=== PATIENT | male | born 1940 | race Caucasian/White ===

== ENCOUNTER 2022-06-24 10:14 | Outpatient (CLI) | payer MEDICARE, BC, SELFPAY ==
[2022-06-24 10:23] VITALS: BP 130/83; PULSE 71; RESP 16; O2SAT 98
[2022-06-24] MEDS: TETRACAINE 0.5% OPHTH 1 DROP EYE-BOTH ×3 (10:31→11:24)
[2022-06-24] MEDS: BRIMONIDINE TARTRATE 0.2% OPHTH 1 DROP EYE-BOTH ×2 (10:31→11:34)
--- NOTE | 2022-06-24 11:55 | W.PM.OPTPROC ---
Procedure Note Date of procedure: 06/24/22 Will [facility] bill your pro fee for this procedure?: Yes Procedure Description: SURGEON: Gaby Aponte MD PREOPERATIVE DIAGNOSIS: Posterior capsular opacity, right and left eye POSTOPERATIVE DIAGNOSIS: Posterior capsular opacity, right and left eye PROCEDURE: YAG laser capsulotomy, both eyes ANESTHESIA: Topical. ESTIMATED BLOOD LOSS: None PATHOLOGY SPECIMEN: None COMPLICATIONS: None INDICATIONS: See consult note for details. The risks, benefits and alternatives of the procedure were explained to the patient, who elected to proceed and signed informed consent to do so. PROCEDURE: The patient was brought to the pre-holding area where the right and left eyes were identified as the operative eyes. I placed my initials above the eyes. The following was given in both eyes: The patient received 2 sets of 1 drop of 0.5% tetracaine and 1 drop of 1% tropicamide. They also received 1 drop of 0.2% brimonidine. They received 1 drop of 0.5% tetracaine immediately prior to bringing them back for the procedure. The patient was then brought to the procedure room where the right and left eyes were again identified as the operative eyes. A YAG Augustine capsulotomy lens was placed on the right eye. The laser was administered using a total number of 47 shots with an energy of 2.4 mJ per shot for a total energy of 113 mJ. Please note that it required this amount of energy to make a small central opening. The patient tolerated the procedure well. A YAG Augustine capsulotomy lens was placed on the left eye. The laser was administered using a total number of 14 shots with an energy of 2.4 mJ per shot for a total energy of 34 mJ. The patient tolerated the procedure well. DISPOSITION: The patient was taken back to the pre-holding area and given 1 drop of 0.2% brimonidine in both eyes. They were discharged to home in stable condition. The patient was instructed to call me or go to the emergency department with any sudden change, including dramatic loss of vision, severe pain in the eye or eyebrow region, nausea, or vomiting. The patient was instructed to use the 0.2% brimonidine 1 drop 2 times a day in both eyes for 1 week. The patient will follow up in the clinic in 1-2 weeks. Surgeon: Gaby Aponte MD
== END 2022-06-24 11:34 | disposition home or self-care (01) ==
PROVIDERS: PCP Family Medicine; Visit Provider Ophthalmology
DX: H26.9 Unspecified cataract (principal)
CPT/HCPCS: 66821; A9270

== ENCOUNTER 2022-11-05 09:46 | Emergency (ER) | payer MEDICARE, BC, SELFPAY ==
[2022-11-05 09:58] VITALS: BP 168/78; PULSE 84; RESP 18; TEMP 35.6; O2SAT 97; BMI 29.9
--- NOTE | 2022-11-05 10:21 | ED_ITS ---
HPI - Headache General Time Seen by Provider: 10:21 Date Seen: 11/05/22 Chief Complaint: Headache/Migraine Stated Complaint: 10/26 double vision issues, ear/headache Lside Time Seen by Provider: 11/05/22 10:21 Source: patient and RN notes reviewed Mode of arrival: ambulatory Limitations: no limitations History of Present Illness HPI Narrative: Patient is an 82-year-old male coming in with concern of left-sided headache and neck pain. Starting October 26 for about a week he had double vision, could not read the newspaper. It did not matter if he opened 1 eye or the other, could not read the newspaper. This did go away. After that he had pain going through his left neck up into his left head. He feels pain over the left scalp area. No fevers or chills. No otalgia. No further visual changes, these have resolved. No ear symptoms, no numbness tingling weakness anywhere. He does not have any pain with with chewing or difficulty chewing. He has maybe felt a little lightheaded at times, no spinning sensation with this. No extremity issues such as numbness tingling weakness or incoordination. He has not felt any chest pain, no palpitations, no irregular heartbeat. He is notably able to read again notes no double vision, no blurry vision. The concern is the head and neck pain at this time. He is not on any blood thinners. His current med rec is reviewed. He has tried some Tylenol and ibuprofen, does dull the pain. He states sleep is not unchanged and is a poor baseline. MD elicited complaint: headache Onset (ago): day(s) Related Data Home Medications Medication Instructions Recorded Confirmed amlodipine 5 mg tablet 5 mg PO DAILY 11/05/22 11/05/22 atorvastatin 40 mg tablet 40 mg PO DAILY 11/05/22 11/05/22 clindamycin phosphate 1 % lotion topical 11/05/22 folic acid 400 mcg tablet 400 mcg PO DAILY 11/05/22 11/05/22 ketoconazole 2 % shampoo topical DAILY 11/05/22 losartan 100 mg tablet 100 mg PO DAILY 11/05/22 11/05/22 methotrexate sodium 2.5 mg tablet 20 mg PO 11/05/22 tamsulosin 0.4 mg capsule mg PO 11/05/22 Allergies Allergy/AdvReac Type Severity Reaction Status Date / Time cephalexin [From Keflex] Allergy Verified 11/05/22 09:56 Review of Systems Status of ROS: Reports: 10 or more systems reviewed and unremarkable except as noted in History and below [facility] Social History Smoking Status: Never smoker Do you use any of these nicotine containing products: None Second hand tobacco smoke exposure: No How often do you have a drink containing alcohol: never AUDIT-C Alcohol total score: 0 Non-prescribed substance use: denies use Exam Const: Vital Signs, click to edit/add: Vital Signs - 24 hr 11/05/22 09:58 11/05/22 10:58 11/05/22 11:38 Temperature 96.1 F L Pulse Rate [Right Pulse Oximeter] 84 65 Respiratory Rate 18 Blood Pressure [Ri ght Upper Arm] 168/78 H 146/71 H Pulse Oximetry 97 98 98 Oxygen Delivery Me thod Room Air Room Air Documenting provider has reviewed patient's vital signs: yes Common normals: no apparent distress, oriented x3, no limitations, healthy appearing, alert and well nourished General appearance: cooperative, comfortable and well [facility] Nutritional appearance: overweight HENMT: Common normals: normocephalic, head/scalp atraumatic, hearing grossly normal bilaterally, external ears normal, TM's normal bilaterally, external nose normal, nasal mucous membranes and turbinates normal, moist oral mucous membranes, oropharynx normal and dentition normal Head and scalp: normocephalic and atraumatic Nose: external nose normal and nasal mucous membranes and turbinates normal External ear: external ears normal Tympanic membrane: TM's normal bilaterally Mouth: oral and palatal mucosa normal, lip normal and tongue normal Eye: Common normals: PERRL, EOMs intact bilaterally, conjunctivae normal, no scleral icterus and normal visual durbin by confrontation General eye: normal appearance of both eyes Alignment: alignment normal Periorbital: periorbital findings normal Eyelid: eyelids normal Conjunctiva: c onjunctiva(e) normal Cornea: corneas normal Pupil: PERRL Neck & C-Spine: Common normals: full ROM, no lymphadenopathy, supple, no meningeal signs, no JVD and thyroid normal Thyroid: thyroid normal Resp: Common normals: normal respiratory effort, no retractions, no use of accessory muscles and clear to auscultation bilaterally Auscultation: clear to auscultation bilaterally Cardio: Common normals: no JVD, regular rate, regular rhythm, S1 normal heart sound, S2 normal heart sound, no gallops, no clicks and no murmurs Rate: regular rate Rhythm: regular rhythm Heart sounds: S1 normal and S2 normal Extremity: Common normals: normal to inspection Neuro: Common normals: oriented x3, CN's II-XII intact bilaterally, moves all extremities, no focal motor deficits, no sensory deficits noted and gait normal Sensorium/orientation: alert Meningeal signs: no meningeal signs Psych: Appearance: well kempt Course Course Hospital Course: It is reassuring that this double vision has resolved and I find no focal neurologic deficits at this time but history for double vision is concerning on the last. We will proceed with CT of his head noncontrast and then a CTA of his head neck. There could be such things as dissection with ongoing head neck pain. Other etiologies could be an atypical presentation of temporal arteritis. We will be getting inflammatory markers with a sed rate and C-reactive protein. Hopefully with the workup including the neuro imaging and the comprehensive labs, we will rule out any emergent or concerning pathology. Reevaluation(s) Reevaluation #1: Negative noncontrast head CT for acute ischemic stroke changes was called to me at 10:59 a.m. Time: 10:59 Reevaluation #2: Have reviewed CT results with patient. Have reviewed that there is no evidence of active ischemic disease from the CT. His CTA is showing incidental right carotid artery stenosis but at 65%. At this time he is having no double vision, is unclear as to the etiology of his double vision but did review that carotid artery disease does put 1 at risk for strokes. Have recommended an 81 mg aspirin and follow up outpatient through his clinic for further risk stratification and management of this. As far as his left-sided headache, the right carotid stenosis is not responsible for headache on the left side. It could be dural path thick or even musculoskeletal in the sense that arthritis of the cervical spine as a potential etiology for him. We did not work this up further given that his head CT CTA is, inflammatory markers and labs were normal. Am going to discharge him for further workup and management of his headache as well on the left side with his primary care provider. Time: 12:40 Vital Signs Vital signs: Initial Vital Signs Temperature 96.1 F L 11/05/22 09:58 Temperature Source Temporal Artery Scan 11/05/22 09:58 Pulse Rate 84 11/05/22 09:58 Respiratory Rate 18 11/05/22 09:58 Blood Pressure 168/78 H 11/05/22 09:58 Blood Pressure Mean 108 H 11/05/22 09:58 Blood Pressure Position Sitting 11/05/22 09:58 Pulse Oximetry 97 11/05/22 09:58 Oxygen Delivery Method Room Air 11/05/22 09:58 Vital Signs Temperature 96.1 F L 11/05/22 09:58 Pulse Rate 84 11/05/22 09:58 Respiratory Rate 18 11/05/22 09:58 Blood Pressure 168/78 H 11/05/22 09:58 Pulse Oximetry 97 11/05/22 09:58 Oxygen Delivery Method Room Air 11/05/22 09:58 Temperature 96.1 F L 11/05/22 09:58 Pulse Rate 65 11/05/22 11:38 Respiratory Rate 18 11/05/22 09:58 Blood Pressure 146/71 H 11/05/22 11:38 Pulse Oximetry 98 11/05/22 11:38 Oxygen Delivery Method Room Air 11/05/22 11:38 MDM - Headache Differential Diagnosis Differential diagnosis: Likely migraine, tension headache, subarachnoid hemorrhage, headache, meningitis and sinusitis Lab Data Attestation: I reviewed the patient's lab results. Labs: Lab Results 11/05/22 Range/Units 10:35 WBC 6.32 (4.50-11.00) K/uL RBC 4.88 (4.30-5.90) m/uL Hgb 14.2 (13.5-17.5) gm/dL Hct 43.5 (37.0-53.0) % MCV 89 (80-100) fL MCH 29 (26-34) pg MCHC 33 (32-36) gm/dL RDW Coeff of Huang 15.8 H (11.5-15.5) % Plt Count 92 L (140-440) K/uL Neut % (Auto) 62.6 (42.0-72.0) % Lymph % (Auto) 23.3 (20-44) % Dundy % (Auto) 8.9 (0.0-11.0) % Eos % (Auto) 4.4 (0.0-7.0) % Baso % (Auto) 0.6 (0.0-3.0) % Neut # (Auto) 3.96 (1.7-7.0) K/uL Lymph # (Auto) 1.47 (0.90-2.90) K/uL Dundy # (Auto) 0.60 (0.00-0.90) K/UL Eos # (Auto) 0.28 (0.00-0.50) K/uL Baso # (Auto) 0.04 (0.00-0.30) K/uL ESR < 2 L (2-15) mm/hr D-Dimer Quant (PE/DVT) 0.35 (0.00-0.50) ug/ml Sodium 141 (135-149) mmol/L Potassium 4.2 (3.6-5.1) mmol/L Chloride 103 (96-114) mmol/L Carbon Dioxide 31 (20-32) mmol/L BUN 15 (7-30) mg/dL Creatinine 0.7 (0.5-1.5) mg/dL Estimated Creat Clear 49.62 Estimated GFR 91 ml/min Glucose 90 (60-115) mg/dL Calcium 9.2 (8.4-10.6) mg/dL Total Bilirubin 1.0 (0.1-1.5) mg/dL AST 36 H (12-35) U/L ALT 28 (4-50) U/L Alkaline Phosphatase 70 (40-150) U/L C-Reactive Protein 0.6 (0.5-1.0) mg/dL Total Protein 7.5 (6.0-8.3) g/dL Albumin 4.5 (3.3-5.0) g/dL POC Creatinine 1.0 (0.6-1.3) mg/dl Imaging Data CT scan - head: Attestation: I have reviewed the pertinent imaging results. My impression: My acute preliminary review of this head CT is negative, wait radiology over read. Radiologist's impression: Patient: ANDRÉS PATEL Facility:?[facility] Patient ID:?[id number] Site Patient ID:?[id number] Site :?[id number] Study:?CT Head W/O Stroke Protocol-11/05/2022 10:51:14 AM Ordering Physician:Joy Sinha Final Report: INDICATION: Recent diplopia COMPARISON: None TECHNIQUE: CT examination of the head was performed as axial sections without intravenous contrast. Images were obtained from the vertex of the skull through the skull base. Please note that all CT scans at this facility use dose modulation, iterative reconstruction, and/or weight-based dosing when appropriate to reduce radiation dose to as low as reasonably achievable. FINDINGS: The brain shows no sign of mass lesion, mass effect, hemorrhage, or edema. There are involutional changes. There is bule-hf-lgwkdgey cortical atrophy and there is tybg-iz-jxahdbnl white matter disease. There is no hydrocephalus. The visualized portions of the orbits are normal in appearance. The osseous structures are normal in appearance with no sign of abnormality in the skull base or calvarium. IMPRESSION: Involutional changes. No acute-appearing findings. Please note that all CT scans at this facility use dose modulation, iterative reconstruction, and/or weight-based dosing when appropriate to reduce radiation dose to as low as reasonably achievable. Dictated by Georges Mendez MD @ 11/05/2022 11:00:54 AM ----- ADDENDUM ----- This report was confirmed has received by Dr. Carvajal at 10:59 a.m. on November 05, 2022. Dictated by Georges Mendez MD @ Nov 05 2022 11:01AM (Electronic Signature) CT angio head and neck: Attestation: I have reviewed the pertinent imaging results. Radiologist's impression: Patient: ANDRÉS PATEL Facility:?[facility] Patient ID:?[id number] Site Patient ID:?[id number] Site :?[id number] Study:?CT Neck Angio Angio 95ML ISOVUE 370-11/05/2022 12:06:19 PM Ordering Physician:Joy Sinha Final Report: CT ANGIOGRAM NECK DATE: 11/05/2022 CLINICAL HISTORY: Patient with diplopia and headache. TECHNIQUE: Standard helical CT image acquisition of the neck up to the skull base after bolus intravenous contrast enhancement. 2D and 3D MIP images for post-processing were performed and interpreted on an independent workstation and 3D images were permanently archived. COMPARISON: CT same day. FINDINGS: The origins of the great vessels from the aortic arch are patent. The origin of the right vertebral artery is patent. The origin of the left vertebral artery is patent. The common carotid arteries are patent. There is a moderate (65%) stenosis at the origin of the right internal carotid artery by NASCET criteria caused by calcified plaque with a 1.7mm residual lumen. There is no stenosis at the origin of the left internal carotid artery by NASCET criteria. The rest of the cervical segments of the internal carotid arteries are patent up to the skull base. The vertebral arteries are codominant. The cervical segments of the vertebral arteries are patent up to the skull base. The visualized lung apices are unremarkable. The thyroid gland is unremarkable. The soft tissues of the neck are unremarkable. There are degenerative changes in the cervical spine. IMPRESSION: Moderate (65%) stenosis at the origin of the right internal carotid artery by NASCET criteria caused by calcified plaque with a 1.7mm residual lumen. Please note that all CT scans at this facility use dose modulation, iterative reconstruction, and/or weight-based dosing when appropriate to reduce radiation dose to as low as reasonably achievable. Dictated by: Belem Alvarez MD @ 11/05/2022 12:21:33 (Electronic Signature) ECG Data Attestation: I personally reviewed and interpreted this ECG as follows: (Normal sinus rhythm, 77 beats per minute. No ischemia, QT corrected 418 milliseconds.) ECG interpretation date: 11/05/22 ECG interpretation time: :23 Prior ECG tracings: not available for review Critical Care Time Critical Care Time Critical Care Time: No Discharge Plan Discharge Clinical Impression: Neck pain on left side, Hx of diplopia, Carotid artery stenosis without cerebral infarction, Left-sided headache Patient Disposition: Home, Self-Care Condition: Stable Instructions: Carotid Artery Disease (DC), General Headache (ED), Neck Pain (ED) Additional Instructions: For the left-sided headache and neck pain, recommend Tylenol 1000 mg up to 3 times a day as needed for pain control. Also recommend starting an 81 mg aspirin daily given the incidental finding of the right carotid artery stenosis that was found. You need to follow up in clinic as soon as you are able to, hopefully within the next week. I would ask your primary care provider to further evaluate and workup your left-sided headache and neck symptoms, could be such things as neuralgia or even coming from your neck which arthritis is always a possibility. The CT report should be taken to your primary care provider and further risk stratification and management should be undertaken for the right carotid stenosis. This will need to be followed and managed. Carotid artery stenosis is a risk factor for stroke and thus is very important to be followed and managed. Activity Level: Activity as Tolerated Discharge Diet: Heart Healthy (2 gm sodium, low fat) Prescriptions: No Action atorvastatin 40 mg tablet 40 mg PO DAILY ketoconazole 2 % shampoo topical DAILY amlodipine 5 mg tablet 5 mg PO DAILY methotrexate sodium 2.5 mg tablet 20 mg PO tamsulosin 0.4 mg capsule PO losartan 100 mg tablet 100 mg PO DAILY clindamycin phosphate 1 % lotion topical folic acid 400 mcg tablet 400 mcg PO DAILY Follow Up/Referrals: Barrington Martines MD [Primary Care Provider] - Stand Alone Forms: [employer] Board [employer] (ABAM) Info Instructions
--- NOTE | 2022-11-05 10:21 | CRLHL7_ITS ---
For Patients: As a result of the Century Cures Act, medical imaging exams and procedure reports are released immediately into your electronic medical record. You may view this report before your referring provider. If you have questions, please contact your health care provider. INDICATION: Recent diplopia COMPARISON: None TECHNIQUE: CT examination of the head was performed as axial sections without intravenous contrast. Images were obtained from the vertex of the skull through the skull base. Please note that all CT scans at this facility use dose modulation, iterative reconstruction, and/or weight-based dosing when appropriate to reduce radiation dose to as low as reasonably achievable. FINDINGS: The brain shows no sign of mass lesion, mass effect, hemorrhage, or edema. There are involutional changes. There is zgfj-qg-jjkvhmyc cortical atrophy and there is tyyj-br-voxfxphq white matter disease. There is no hydrocephalus. The visualized portions of the orbits are normal in appearance. The osseous structures are normal in appearance with no sign of abnormality in the skull base or calvarium. IMPRESSION: Involutional changes. No acute-appearing findings. Please note that all CT scans at this facility use dose modulation, iterative reconstruction, and/or weight-based dosing when appropriate to reduce radiation dose to as low as reasonably achievable. Dictated by Georges Mendez MD @ 11/05/2022 11:00:54 AM (Electronically Signed)
--- NOTE | 2022-11-05 10:21 | CRLHL7_ITS ---
For Patients: As a result of the Century Cures Act, medical imaging exams and procedure reports are released immediately into your electronic medical record. You may view this report before your referring provider. If you have questions, please contact your health care provider. CT ANGIOGRAM HEAD DATE: 11/05/2022 CLINICAL HISTORY: Patient with headache and diplopia. TECHNIQUE: Standard helical CT image acquisition through the intracranial circulation following intravenous administration of contrast material with bolus tracking. 2D and 3D MIP images for post-processing were performed and interpreted on an independent workstation and 3D images were permanently archived. COMPARISON: CT same day. FINDINGS: There is no proximal intracranial large vessel occlusion. There is no intracranial aneurysm. The right internal carotid artery is normal. The right middle cerebral artery and its branches are normal. The right anterior cerebral artery and its branches are normal. The left internal carotid artery is normal. The left middle cerebral artery and its branches are normal. The left anterior cerebral artery and its branches are normal. The anterior communicating artery is well visualized and appears normal. The right vertebral artery and PICA are normal. The left vertebral artery and PICA are normal. The left vertebral artery is dominant. The basilar artery is patent and appears normal. The right posterior cerebral artery is normal. The left posterior cerebral artery is normal. The visualized venous structures are patent. IMPRESSION: Patent proximal intracranial vasculature. Please note that all CT scans at this facility use dose modulation, iterative reconstruction, and/or weight-based dosing when appropriate to reduce radiation dose to as low as reasonably achievable. Dictated by: Belem Alvarez MD @ 11/05/2022 12:23:14 (Electronically Signed)
[2022-11-05 10:58] VITALS: O2SAT 98
[2022-11-05 11:00] LABS: Basophils Absolute Auto 0.04 K/uL (0.00-0.30); Basophils Percent Auto 0.6 % (0.0-3.0); Eosinophils Absolute Auto 0.28 K/uL (0.00-0.50); Eosinophils Percent Auto 4.4 % (0.0-7.0); Hematocrit 43.5 % (37.0-53.0); Hemoglobin* 14.2 gm/dL (13.5-17.5); Immature Granulocytes Abs Auto 0.01 K/uL (0.00-0.30); Immature Granulocytes Pct Auto 0.2 %; Lymphocytes Absolute Auto 1.47 K/uL (0.90-2.90); Lymphocytes Percent Auto 23.3 % (20-44); Mean Corpuscular HGB Conc 33 gm/dL (32-36); Mean Corpuscular Hemoglobin 29 pg (26-34); Mean Corpuscular Volume 89 fL (80-100); Monocytes Percent Auto 8.9 % (0.0-11.0); Neutrophils Absolute Auto 3.96 K/uL (1.7-7.0); Neutrophils Percent Auto 62.6 % (42.0-72.0); Platelet Count* 92 K/uL (140-440); RDW Coefficient of Variation % 15.8 % (11.5-15.5); Red Blood Count 4.88 m/uL (4.30-5.90); White Blood Count* 6.32 K/uL (4.50-11.00)
[2022-11-05 11:01] LABS: Albumin* 4.5 g/dL (3.3-5.0); Chloride* 103 mmol/L (96-114); Sodium* 141 mmol/L (135-149)
[2022-11-05 11:02] LABS: Potassium* 4.2 mmol/L (3.6-5.1); Slide Review Reflex No
[2022-11-05 11:04] LABS: Alkaline Phosphatase* 70 U/L (40-150); Aspartate Amino Transferase* 36 U/L (12-35); Carbon Dioxide* 31 mmol/L (20-32); Creatinine* 0.7 mg/dL (0.5-1.5); Est. Creatinine Clearance* 49.62; Estimated Glomerular Filt Rate 91 ml/min; Total Protein* 7.5 g/dL (6.0-8.3)
[2022-11-05 11:05] LABS: Alanine Aminotransferase* 28 U/L (4-50); Blood Urea Nitrogen* 15 mg/dL (7-30); Calcium* 9.2 mg/dL (8.4-10.6); D Dimer Quantitative* 0.35 ug/ml (0.00-0.50); Glucose* 90 mg/dL (60-115)
[2022-11-05 11:07] LABS: C Reactive Protein* 0.6 mg/dL (0.5-1.0)
[2022-11-05 11:38] VITALS: BP 146/71; PULSE 65; O2SAT 98
[2022-11-05 12:00] LABS: Erythrocyte SedimentationRate* < 2 mm/hr (2-15)
== END 2022-11-05 12:58 | disposition home or self-care (01) ==
PROVIDERS: Emergency Provider Family Medicine; PCP Family Medicine
DX: M54.2 Cervicalgia (principal); R51.9 Headache, unspecified; I65.21 Occlusion and stenosis of right carotid artery
CPT/HCPCS: 36415; 70450; 70496; 70498; 80053; 82565; 85025; 85379; 85651; 86140; 93005; 94761; 99284; 99285; Q9967

== ENCOUNTER 2022-12-31 08:45 | Outpatient (RCR) | payer MEDICARE, BC, SELFPAY | END 2023-04-30 23:59 | disposition home or self-care (01) | PROVIDERS: PCP Family Medicine; Visit Provider Family Medicine | DX: M54.2 Cervicalgia (principal); Z74.09 Other reduced mobility; R29.3 Abnormal posture; R53.1 Weakness; R51.9 Headache, unspecified; R20.0 Anesthesia of skin; R20.8 Other disturbances of skin sensation; R20.2 Paresthesia of skin; Z51.89 Encounter for other specified aftercare | CPT/HCPCS: 97140; 97162 ==